=== PATIENT | female | born 2005 | race Hispanic/Latino ===

== ENCOUNTER 2024-01-17 14:22 | Outpatient (CLI) | payer OTHER | END 2024-01-17 14:23 | disposition home or self-care (01) | LOC: CSHULT 14:22 | PROVIDERS: ATTEND Internal Medicine | DX: Z34.03 Encounter for supervision of normal first pregnancy, third trimester (principal); Z3A.30 30 weeks gestation of pregnancy | CPT/HCPCS: 76805 ==

== ENCOUNTER 2024-02-27 14:11 | Day surgery (SDC) | payer SELFPAY ==
[2024-02-27 15:25] VITALS: BMI 28.2
[2024-02-27] MEDS ORDERED: hydrALAZINE 20 MG/ML VIAL SLOW IVP PRN (15:36)
[2024-02-27 17:05] LABS: Bilirubin Neg (Negative); Blood, Urine Negative (Negative); Clarity Clear (Clear); Glucose, Urine (Dipstick) Normal (Negative); Ketone, Urine Negative (Negative); Leukocyte Negative (Negative); Nitrite Negative (Negative); Protein, Urine (Dipstick) 15 mg/dl (Neg-Trace); Specific Gravity, Urine 1.015 (1.005-1.030); Urobilinogen Normal mg/dL (Less than 2)
[2024-02-27 17:31] LABS: Bacteria/HPF 1+ HPF (None Seen); CAUTI Indications for Culture Pregnancy; Mucous/LPF Rare LPF (<2+); RBC/HPF 0-3 HPF (0-3); WBC/HPF 0-3 HPF (0-3)
[2024-02-27 17:33] LABS: Urine Culture Reflex Yes Yes
== END 2024-02-27 18:38 | disposition home health service, planned readmission (86) ==
LOC: CSHLD/OP 14:11
PROVIDERS: ATTEND Family Medicine
DX: O47.1 False labor at or after 37 completed weeks of gestation (principal); O99.891 Other specified diseases and conditions complicating pregnancy; R30.9 Painful micturition, unspecified; O26.853 Spotting complicating pregnancy, third trimester; Z79.899 Other long term (current) drug therapy; Z91.014 Allergy to mammalian meats; Z3A.37 37 weeks gestation of pregnancy
CPT/HCPCS: 81001; 87086

== ENCOUNTER 2024-03-12 08:36 | Day surgery (SDC) | payer OTHER ==
[2024-03-12] MEDS ORDERED: hydrALAZINE 20 MG/ML VIAL SLOW IVP PRN (09:59)
[2024-03-12 10:39] LABS: Bilirubin Neg (Negative); Blood, Urine Negative (Negative); Clarity Clear (Clear); Glucose, Urine (Dipstick) Normal (Negative); Ketone, Urine Negative (Negative); Leukocyte Negative (Negative); Nitrite Negative (Negative); Protein, Urine (Dipstick) Negative (Neg-Trace); Specific Gravity, Urine 1.005 (1.005-1.030); Urobilinogen Normal mg/dL (Less than 2)
[2024-03-12 11:05] LABS: Bacteria/HPF Rare-Few HPF (None Seen); CAUTI Indications for Culture Dysuria,urgency,freq; RBC/HPF None Seen HPF (0-3); Squamous Epithelial 0-3 HPF (0-3); Urine Culture Reflex No No; WBC/HPF None Seen HPF (0-3)
== END 2024-03-12 11:15 | disposition home health service (06) ==
LOC: CSHLD/OP 08:36
PROVIDERS: ATTEND Family Medicine
DX: O47.1 False labor at or after 37 completed weeks of gestation (principal); O99.891 Other specified diseases and conditions complicating pregnancy; R30.0 Dysuria; Z3A.39 39 weeks gestation of pregnancy; Z79.899 Other long term (current) drug therapy
CPT/HCPCS: 81001; 99284